=== PATIENT | female | born 1960 | race Caucasian/White ===

== ENCOUNTER 2018-08-29 07:16 | Observation (INO) | payer BC ==
[~2018-08-29 07:16] MED LIST: DESFLURANE 15 MIN
[2018-08-29] MEDS: SOD CHLORIDE 0.9% 1,000 ML IV (08:55)
[2018-08-29] MEDS ORDERED: CEFAZOLIN 1 GM INJ (10:25)
[2018-08-29] MEDS ORDERED: PROPOFOL 20 ML (10:25)
[2018-08-29] MEDS ORDERED: ROCURONIUM 50 MG INJ (10:25)
[2018-08-29] MEDS ORDERED: FENTAnyl 50 MCG/ML VIAL ×2 (10:25→10:52)
[2018-08-29] MEDS ORDERED: MIDAZOLAM 1 MG/ML 2 ML INJ (10:25)
[2018-08-29] MEDS ORDERED: NEOSTIGMINE 3 MG/3 ML SYRINGE (10:25)
[2018-08-29] MEDS ORDERED: ONDANSETRON 4 MG INJ (10:26)
[2018-08-29] MEDS ORDERED: EPHEDrine SULFATE 50 MG/5 ML SYG IV (10:30)
[2018-08-29] MEDS ORDERED: TRIMETHOBENZAMIDE 100 MG/ML VIAL IM (10:30)
[2018-08-29] MEDS ORDERED: OXYCODONE/ACETAMINOPHEN (5/325) TAB PO (10:30)
[2018-08-29] MEDS ORDERED: ALBUTEROL 0.083% (NEB) 2.5 MG/3 ML AMP HHN (10:30)
[2018-08-29] MEDS ORDERED: ROPIVACAINE 0.5 % 30 ML VIAL (10:30)
[2018-08-29] MEDS ORDERED: hydrALAzine 20 MG INJ IV (10:30)
[2018-08-29] MEDS ORDERED: DIPHENHYDRAMINE 50 MG INJ IV (10:30)
[2018-08-29] MEDS ORDERED: FENTAnyl 50 MCG/ML VIAL IV ×3 (10:30)
[2018-08-29] MEDS ORDERED: HYDROmorphONE 1 MG/5 ML IV SYRINGE IV (10:30)
[2018-08-29] MEDS ORDERED: IPRATROPIUM (NEB) 0.5 MG/2.5 ML AMP HHN (10:30)
[2018-08-29] MEDS ORDERED: LABETALOL HCL 20MG INJ IV (10:30)
[2018-08-29] MEDS: POLYMYXIN/BACITRACIN 1L IRRIG IRR (10:48)
[2018-08-29] MEDS ORDERED: DEXAMETHASONE 4 MG/ML 5 ML INJ (10:53)
[2018-08-29] MEDS ORDERED: SUGAMMADEX SODIUM 200 MG/2 ML VIAL IV (11:09)
[2018-08-29] MEDS: ONDANSETRON 4 MG INJ IV (11:34)
[2018-08-29] MEDS: HYDROmorphONE 1 MG/5 ML IV SYRINGE IV ×3 (11:35→11:52)
[2018-08-29] MEDS: MIDAZOLAM 1 MG/ML 2 ML INJ IV (11:55)
[2018-08-29] MEDS: HYDROCODONE/APAP (5/325) TAB PO (12:03)
[2018-08-29] MEDS: MEPERIDINE 25 MG INJ IV (12:14)
[2018-08-29] MEDS: OXYCODONE/ACETAMINOPHEN (5/325) TAB PO (13:10)
[2018-08-29] MEDS ORDERED: HYDROCODONE/APAP (5/325) TAB PO (14:30)
[2018-08-29] MEDS: morphine 2 MG INJ IV (15:04)
[2018-08-30] MEDS: morphine SULFATE/PF (2 MG/2 ML) SYG IV ×5 (01:18→18:14)
[2018-08-30 14:07] LABS: ADD MAN DIFF? NO
[2018-08-30 14:12] LABS: WHITE BLOOD COUNT 19.7 10^3/ul (4.8-10.8)
[2018-08-30 14:12] LABS: BASOPHILS % 0.2 % (0.0-2.0); EOSINOPHILS % 0.1 % (0.0-7.0); HEMATOCRIT 38.6 % (37.0-47.0); HEMOGLOBIN 12.3 g/dl (12.0-16.0); LYMPHOCYTES # 2.7 10^3/ul (0.8-2.9); LYMPHOCYTES % 13.8 % (15.0-51.0); MEAN CORPUSCULAR HEMOGLOBIN 28.6 pg (29.0-33.0); MEAN CORPUSCULAR HGB CONC 31.9 g/dl (32.0-37.0); MEAN CORPUSCULAR VOLUME 89.8 fl (82.0-101.0); MEAN PLATELET VOLUME 10.8 fl (7.4-10.4); MONOCYTE # 0.7 10^3/ul (0.3-0.9); MONOCYTES % 3.5 % (0.0-11.0); NEUTROPHIL # 16.2 10^3/ul (1.6-7.5); NEUTROPHILS % 81.9 % (39.0-77.0); PLATELET COUNT 279 10^3/UL (140-415); RED CELL DISTRIBUTION WIDTH 14.5 % (11.5-14.5)
[2018-08-30 14:31] LABS: ANION GAP 14 (5-13); BLOOD UREA NITROGEN 22 mg/dl (7-20); CALCIUM 9.4 mg/dl (8.4-10.2); CARBON DIOXIDE 26 mmol/L (21-31); CHLORIDE 102 mmol/L (97-110); CREATININE 0.69 mg/dl (0.44-1.00); Estimated GFR > 60 mL/min (>60); GLUCOSE 148 mg/dl (70-220); POTASSIUM 4.3 mmol/L (3.5-5.1); SODIUM 142 mmol/L (135-144)
[2018-08-30] MEDS: DIAZEPAM 5 MG TAB PO (17:30)
[2018-08-30] MEDS ORDERED: DIAZEPAM LIQ 5 MG/ML PO SYG PO (17:30)
[2018-08-30] MEDS: HYDROCODONE/APAP (10/325) TAB PO (21:52)
[2018-08-31] MEDS: IBUPROFEN 400 MG TAB PO (01:52)
[2018-08-31] MEDS: HYDROCODONE/APAP (10/325) TAB PO ×3 (09:54→23:49)
[2018-08-31] MEDS: CEFAZOLIN 2 GM/50 ML (PMX) 50 ML IVPB (10:52)
[2018-08-31 15:53] LABS: ADD MAN DIFF? NO
[2018-08-31 15:56] LABS: BASOPHILS % 0.2 % (0.0-2.0); EOSINOPHILS # 0.1 10^3/ul (0.0-0.5); EOSINOPHILS % 1.2 % (0.0-7.0); HEMOGLOBIN 12.7 g/dl (12.0-16.0); LYMPHOCYTES # 4.2 10^3/ul (0.8-2.9); LYMPHOCYTES % 35.1 % (15.0-51.0); MEAN CORPUSCULAR HEMOGLOBIN 28.7 pg (29.0-33.0); MEAN CORPUSCULAR HGB CONC 31.8 g/dl (32.0-37.0); MEAN CORPUSCULAR VOLUME 90.5 fl (82.0-101.0); MEAN PLATELET VOLUME 10.7 fl (7.4-10.4); MONOCYTE # 0.6 10^3/ul (0.3-0.9); MONOCYTES % 5.4 % (0.0-11.0); NEUTROPHIL # 6.9 10^3/ul (1.6-7.5); NEUTROPHILS % 57.8 % (39.0-77.0); PLATELET COUNT 285 10^3/UL (140-415); RED BLOOD COUNT 4.42 10^6/ul (4.20-5.40); RED CELL DISTRIBUTION WIDTH 14.4 % (11.5-14.5)
[2018-08-31 15:56] LABS: WHITE BLOOD COUNT 11.9 10^3/ul (4.8-10.8)
[2018-08-31] MEDS: PANTOPRAZOLE 40 MG INJ IV (16:08)
[2018-08-31] MEDS: morphine SULFATE/PF (2 MG/2 ML) SYG IV (20:35)
[2018-09-01 05:10] LABS: ADD MAN DIFF? NO
[2018-09-01 05:17] LABS: WHITE BLOOD COUNT 10.9 10^3/ul (4.8-10.8)
[2018-09-01 05:17] LABS: BASOPHILS % 0.1 % (0.0-2.0); EOSINOPHILS # 0.2 10^3/ul (0.0-0.5); EOSINOPHILS % 1.6 % (0.0-7.0); HEMATOCRIT 36.6 % (37.0-47.0); HEMOGLOBIN 11.8 g/dl (12.0-16.0); LYMPHOCYTES # 2.7 10^3/ul (0.8-2.9); LYMPHOCYTES % 25.2 % (15.0-51.0); MEAN CORPUSCULAR HEMOGLOBIN 28.7 pg (29.0-33.0); MEAN CORPUSCULAR HGB CONC 32.2 g/dl (32.0-37.0); MEAN CORPUSCULAR VOLUME 89.1 fl (82.0-101.0); MEAN PLATELET VOLUME 10.5 fl (7.4-10.4); MONOCYTE # 0.7 10^3/ul (0.3-0.9); NEUTROPHIL # 7.3 10^3/ul (1.6-7.5); NEUTROPHILS % 66.7 % (39.0-77.0); PLATELET COUNT 244 10^3/UL (140-415); RED BLOOD COUNT 4.11 10^6/ul (4.20-5.40); RED CELL DISTRIBUTION WIDTH 14.2 % (11.5-14.5)
[2018-09-01] MEDS: IBUPROFEN 400 MG TAB PO (09:12)
[2018-09-01] MEDS ORDERED: DOCUSATE SODIUM 100 MG CAP PO (10:30)
[2018-09-01] MEDS: POLYETHYLENE GLYCOL 17 GM PACKET GTB (11:36)
[2018-09-01] MEDS: HYDROCODONE/APAP (10/325) TAB PO (13:48)
== END 2018-09-01 15:40 | disposition home or self-care (01) ==
LOC: SDS 07:16 → REC 14:14 → MS1 17:40
DX: K43.0 Incisional hernia with obstruction, without gangrene (principal); K43.6 Other and unspecified ventral hernia with obstruction, without gangrene; K21.9 Gastro-esophageal reflux disease without esophagitis; M17.12 Unilateral primary osteoarthritis, left knee; F32.9 Major depressive disorder, single episode, unspecified; G47.00 Insomnia, unspecified; D72.828 Other elevated white blood cell count; K66.0 Peritoneal adhesions (postprocedural) (postinfection)
CPT/HCPCS: 49653; 80048; 85025